=== PATIENT | female | born 1950 | race Hispanic/Latino ===

== ENCOUNTER → 2018-01-11 | Outpatient (CLI) | payer MEDICARE, OTHER | END | disposition home or self-care (01) | LOC: RAH 12:31 | PROVIDERS: ATTEND Family Medicine | DX: Z12.31 Encounter for screening mammogram for malignant neoplasm of breast (principal); R19.05 Periumbilic swelling, mass or lump; I10 Essential (primary) hypertension; R22.42 Localized swelling, mass and lump, left lower limb | CPT/HCPCS: 76882; 77067 ==

== ENCOUNTER → 2019-01-24 | Outpatient (CLI) | payer OTHER | END | disposition home or self-care (01) | LOC: RAH 10:07 | PROVIDERS: ATTEND Family Medicine | DX: Z12.31 Encounter for screening mammogram for malignant neoplasm of breast (principal) | CPT/HCPCS: 77067 ==

== ENCOUNTER → 2019-06-29 | Outpatient (CLI) | payer OTHER ==
[2019-06-29 08:53] LABS: BASOPHILS % (AUTO) 0.8 % (0.0-5.0); EOSINOPHILS % (AUTO) 2.5 % (0.0-8.0); HEMATOCRIT 41.4 % (36-48); LYMPHOCYTES % (AUTO) 29.8 % (21.0-51.0); MEAN CORPUSCULAR HEMOGLOBIN 27.9 pg (27.0-33.0); MEAN CORPUSCULAR HGB CONC 33.8 g/dL (32.0-36.0); MEAN CORPUSCULAR VOLUME 82.7 fL (79-99); MONOCYTES % (AUTO) 6.8 % (3.0-13.0); NEUTROPHILS % (AUTO) 60.1 % (40.0-77.0); PLATELET COUNT (AUTO) 214 K/uL (130-400); RED BLOOD CELL COUNT(AUTO) 5.01 MIL/uL (4.00-5.50); RED CELL DISTRIBUTION WIDTH 14.4 % (11.0-15.5); WHITE BLOOD COUNT (AUTO) 7.4 K/uL (4.8-10.8)
[2019-06-29 09:01] LABS: HEMOGLOBIN A1C 5.7 % (4.0-6.0)
[2019-06-29 09:18] LABS: ALBUMIN 3.6 g/dL (3.5-5.0); BILIRUBIN,TOTAL 0.4 mg/dL (0.2-1.0); CREATININE 0.6 mg/dL (0.5-1.5); POTASSIUM 3.8 mmol/L (3.5-5.1); T4 (THYROXINE) 9.6 ug/dL (4.7-13.3); THYROID STIMULATING HORMONE 2.54 uIU/mL (0.36-3.74); TOTAL PROTEIN, SERUM 7.8 g/dL (6.0-8.3)
== END | disposition home or self-care (01) ==
LOC: LAB 06-28 11:22
PROVIDERS: ATTEND Physician Assistant
DX: E78.5 Hyperlipidemia, unspecified (principal); R06.9 Unspecified abnormalities of breathing; D50.9 Iron deficiency anemia, unspecified; D64.9 Anemia, unspecified; I10 Essential (primary) hypertension; E55.9 Vitamin D deficiency, unspecified; E66.01 Morbid (severe) obesity due to excess calories; M25.50 Pain in unspecified joint; Z79.899 Other long term (current) drug therapy; Z98.84 Bariatric surgery status; Z68.41 Body mass index [BMI] 40.0-44.9, adult
CPT/HCPCS: 36415; 80053; 80061; 82306; 82607; 82746; 83036; 83540; 83735; 84207; 84425; 84436; 84443; 84446; 84481; 84590; 84630; 85025

== ENCOUNTER 2020-11-06 10:00 | Observation (INO) | payer MEDICARE ==
[~2020-11-06] VITALS: Ht 152.4 cm; Wt 76.3 kg
[2020-11-06 09:50] LABS: BASOPHILS % (AUTO) 0.6 % (0.0-5.0); EOSINOPHILS % (AUTO) 2.7 % (0.0-8.0); HEMATOCRIT 42.3 % (36-48); LYMPHOCYTES % (AUTO) 38.5 % (21.0-51.0); MEAN CORPUSCULAR HEMOGLOBIN 28.3 pg (27.0-33.0); MEAN CORPUSCULAR HGB CONC 33.3 g/dL (32.0-36.0); MEAN CORPUSCULAR VOLUME 84.9 fL (79-99); NEUTROPHILS % (AUTO) 51.1 % (40.0-77.0); PLATELET COUNT (AUTO) 205 K/uL (130-400); RED BLOOD CELL COUNT(AUTO) 4.98 MIL/uL (4.00-5.50); RED CELL DISTRIBUTION WIDTH 13.3 % (11.0-15.5); WHITE BLOOD COUNT (AUTO) 6.7 K/uL (4.8-10.8)
[2020-11-06 09:59] LABS: APPEARANCE,URINE Turbid (CLEAR); BILIRUBIN,URINE Negative (NEGATIVE); COLOR,URINE Yellow (YELLOW); GLUCOSE, URINE (UA) Negative (NEGATIVE); KETONES,URINE Negative (NEGATIVE); LEUKOCYTE ESTERASE ,URINE Moderate (NEGATIVE); NITRATE,URINE Negative (NEGATIVE); OCCULT BLOOD,URINE Negative (NEGATIVE); PROTEIN,URINE Negative (NEGATIVE); UROBILINOGEN,URINE 0.2 mg/dL (0.2-1.0)
[2020-11-06 10:05] LABS: BACTERIA,URINE Many /HPF (None Seen); RBC,URINE 0-1 /HPF (0-1); SQUAMOUS EPITHELIAL CELL,UR Rare /HPF (0-2)
[2020-11-06 10:09] LABS: INR 1.02 (0.85-1.15); PROTHROMBIN TIME 11.1 SEC (9.6-11.6)
[2020-11-06 10:10] LABS: CREATININE 0.5 mg/dL (0.5-1.5); POTASSIUM 4.4 mmol/L (3.5-5.1)
[2020-11-06] MEDS ORDERED: ACET-66 PO (13:30)
[2020-11-08] MEDS: GENTAMICIN SULFATE 240 MG in SODIUM CHLORIDE 0.9% 100 ML IV SCH (12:15)
[2020-11-09] MEDS: GENTAMICIN SULFATE 240 MG in SODIUM CHLORIDE 0.9% 100 ML IV SCH (12:15)
[2020-11-10] VITALS (24 sets, daily range): BP systolic 108–136; BP diastolic 52–75
[2020-11-10] MEDS ORDERED: CEFAZOLIN SODIUM 1 GM VIAL IVP SCH (05:00)
[2020-11-10] MEDS ORDERED: GLYCOPYRROLATE 1 MG/5 ML SYRINGE ONE (07:11)
[2020-11-10] MEDS ORDERED: SUCCINYLCHOLINE CHLORIDE 20 MG/ML 10 ML VIAL ONE (07:11)
[2020-11-10] MEDS ORDERED: DEXAMETHASONE SOD PHOSPHATE 10MG/ML 1ML VIAL ONE (07:11)
[2020-11-10] MEDS ORDERED: LIDOCAINE PF 100MG/5ML (2%) SYRINGE 5ML ONE (07:11)
[2020-11-10] MEDS ORDERED: NEOSTIGMINE 5MG/5ML SYR IV ONE (07:12)
[2020-11-10] MEDS ORDERED: MIDAZOLAM HCL 1 MG/ML 2ML VIAL ONE (07:12)
[2020-11-10] MEDS ORDERED: ROCURONIUM 10MG/1ML SYR 10 MG/ML ML ONE ×2 (07:12→10:34)
[2020-11-10] MEDS ORDERED: PROPOFOL 10 MG/ML 20ML VIAL IV ONE (07:12)
[2020-11-10] MEDS ORDERED: ONDANSETRON HCL 4 MG/2 ML VIAL ONE ×2 (07:12→10:34)
[2020-11-10] MEDS ORDERED: FENTANYL CITRATE PF 50 MCG/1 ML 2ML VIAL ONE (07:12)
[2020-11-10] MEDS ORDERED: SODIUM CHLORIDE 0.9% 1000ML 1,000 ML IV ONE (07:35)
[2020-11-10] MEDS ORDERED: ATOR20TA65 PO (07:56)
[2020-11-10] MEDS ORDERED: AMLO-258 PO (07:56)
[2020-11-10] MEDS ORDERED: TRANEXAMIC ACID 1000MG/10ML ONE ×2 (08:08→09:04)
[2020-11-10] MEDS ORDERED: METOCLOPRAMIDE 10 MG/2 ML VIAL ONE (08:08)
[2020-11-10] MEDS ORDERED: CELECOXIB 200 MG CAP ONE (08:08)
[2020-11-10] MEDS ORDERED: ACETAMINOPHEN 500 MG TABLET ONE (08:08)
[2020-11-10] MEDS ORDERED: CEFAZOLIN SODIUM 1 GM VIAL ONE (09:04)
[2020-11-10] MEDS: GENTAMICIN SULFATE 240 MG in SODIUM CHLORIDE 0.9% 100 ML IV SCH (09:05)
[2020-11-10] MEDS ORDERED: EPINEPHRINE 1 MG/ML AMPULE ONE (09:32)
[2020-11-10] MEDS ORDERED: PHENYLEPHRINE HCL 10 MG/ML 1ML VIAL IV ONE (09:32)
[2020-11-10] MEDS ORDERED: EPHEDRINE SULFATE 50 MG/ML AMPULE ONE (09:34)
[2020-11-10] MEDS ORDERED: FAMOTIDINE/PF 20 MG/2 ML VIAL IV ONE (09:42)
[2020-11-10] MEDS ORDERED: CEFAZOLIN SODIUM 1 GM VIAL IRRIG ONE (11:05)
[2020-11-10] MEDS ORDERED: MEPERIDINE-PF 25 MG/ML SYG ONE ×2 (12:42→13:31)
[2020-11-10] MEDS: ACETAMINOPHEN 500 MG TABLET PO SCH ×2 (12:45→20:28)
[2020-11-10] MEDS ORDERED: DiphenhydrAMINE HCL 50 MG/ML VIAL IVP PRN (12:45)
[2020-11-10] MEDS ORDERED: TRAMADOL HCL 50 MG TABLET PO PRN (12:45)
[2020-11-10] MEDS ORDERED: KCL 20 MEQ ERTAB PO PRN (12:45)
[2020-11-10] MEDS ORDERED: SODIUM CHLORIDE 0.9% 1000ML 1,000 ML IV SCH (12:45)
[2020-11-10] MEDS ORDERED: POTASSIUM CHLORIDE 10% ELIXIR 20 MEQ/15 ML UDCUP PO PRN (12:45)
[2020-11-10] MEDS ORDERED: POTASSIUM CHLORIDE 20MEQ/100ML 100 ML IV PRN (12:45)
[2020-11-10] MEDS ORDERED: FERROUS FUMARATE 324 MG TABLET PO PRN (12:45)
[2020-11-10] MEDS ORDERED: TEMAZEPAM 15 MG CAPSULE PO PRN (12:45)
[2020-11-10] MEDS ORDERED: CALCIUM CARBONATE 500 MG TABLET PO PRN (12:45)
[2020-11-10] MEDS ORDERED: KETOROLAC 15MG/ML VIAL (15MG/ML) IV PRN (12:45)
[2020-11-10] MEDS ORDERED: ONDANSETRON HCL 4 MG/2 ML VIAL IVP PRN (12:45)
[2020-11-10] MEDS ORDERED: LIDOCAINE HCL-MPF 1% 2ML VIAL IV PRN (12:45)
[2020-11-10] MEDS ORDERED: OXYCODONE HCL 5 MG TAB PO PRN ×2 (12:45)
[2020-11-10] MEDS: CEFAZOLIN SODIUM 1 GM VIAL IVP SCH (17:38)
[2020-11-10] MEDS: ASPIRIN 81MG TAB.CHEW PO SCH (20:26)
[2020-11-10] MEDS: FAMOTIDINE 20MG TAB 20 MG TAB PO SCH (20:27)
[2020-11-10] MEDS: PREGABALIN 25 MG CAP PO SCH (20:27)
[2020-11-10] MEDS: ATORVASTATIN CALCIUM 20 MG TABLET PO SCH (20:27)
[2020-11-10] MEDS: CELECOXIB 200 MG CAP PO SCH (20:27)
[2020-11-11] MEDS: CEFAZOLIN SODIUM 1 GM VIAL IVP SCH (00:30)
[2020-11-11] MEDS: ACETAMINOPHEN 500 MG TABLET PO SCH ×3 (04:57→19:31)
[2020-11-11 05:03] LABS: HEMATOCRIT 35.5 % (36-48); MEAN CORPUSCULAR HGB CONC 33.2 g/dL (32.0-36.0); MEAN CORPUSCULAR VOLUME 84.1 fL (79-99); RED BLOOD CELL COUNT(AUTO) 4.22 MIL/uL (4.00-5.50); WHITE BLOOD COUNT (AUTO) 12.3 K/uL (4.8-10.8)
[2020-11-11 05:13] VITALS: BP 114/55
[2020-11-11 05:22] LABS: CREATININE 0.8 mg/dL (0.5-1.5); POTASSIUM 4.4 mmol/L (3.5-5.1)
[2020-11-11 08:00] VITALS: BP 125/61
[2020-11-11] MEDS: PREGABALIN 25 MG CAP PO SCH ×2 (08:10→19:32)
[2020-11-11] MEDS: AMLODIPINE BESYLATE 5 MG TAB PO SCH (08:10)
[2020-11-11] MEDS: FAMOTIDINE 20MG TAB 20 MG TAB PO SCH ×2 (08:10→19:32)
[2020-11-11] MEDS: CELECOXIB 200 MG CAP PO SCH ×2 (08:10→19:32)
[2020-11-11] MEDS: ASPIRIN 81MG TAB.CHEW PO SCH ×2 (08:10→19:31)
[2020-11-11] MEDS: POLYETHYLENE GLYCOL 3350 17 GM POWD.PACK PO SCH (08:10)
[2020-11-11 16:00] VITALS: BP 111/47
[2020-11-11] MEDS: ATORVASTATIN CALCIUM 20 MG TABLET PO SCH (19:32)
[2020-11-11 20:37] VITALS: BP 128/54
[2020-11-11 23:38] VITALS: BP 114/60
[2020-11-12 03:25] VITALS: BP 130/61
[2020-11-12] MEDS: ACETAMINOPHEN 500 MG TABLET PO SCH ×3 (04:16→19:48)
[2020-11-12 04:24] LABS: HEMATOCRIT 32.3 % (36-48); MEAN CORPUSCULAR HEMOGLOBIN 28.5 pg (27.0-33.0); MEAN CORPUSCULAR HGB CONC 34.1 g/dL (32.0-36.0); MEAN CORPUSCULAR VOLUME 83.7 fL (79-99); RED BLOOD CELL COUNT(AUTO) 3.86 MIL/uL (4.00-5.50); RED CELL DISTRIBUTION WIDTH 13.5 % (11.0-15.5); WHITE BLOOD COUNT (AUTO) 10.4 K/uL (4.8-10.8)
[2020-11-12 08:32] VITALS: BP 114/70
[2020-11-12] MEDS: AMLODIPINE BESYLATE 5 MG TAB PO SCH (11:12)
[2020-11-12] MEDS: CELECOXIB 200 MG CAP PO SCH ×2 (11:12→19:47)
[2020-11-12] MEDS: ASPIRIN 81MG TAB.CHEW PO SCH ×2 (11:12→19:47)
[2020-11-12] MEDS: POLYETHYLENE GLYCOL 3350 17 GM POWD.PACK PO SCH (11:13)
[2020-11-12] MEDS: PREGABALIN 25 MG CAP PO SCH ×2 (11:13→19:47)
[2020-11-12] MEDS: FAMOTIDINE 20MG TAB 20 MG TAB PO SCH ×2 (11:13→19:47)
[2020-11-12 11:19] VITALS: BP 135/59
[2020-11-12] MEDS ORDERED: HYDR-4060 PO (14:42)
[2020-11-12] MEDS ORDERED: ASPI-1005 PO (14:42)
[2020-11-12 16:39] VITALS: BP 136/56
[2020-11-12] MEDS: ATORVASTATIN CALCIUM 20 MG TABLET PO SCH (19:47)
[2020-11-12 20:01] VITALS: BP 109/65
[2020-11-13] MEDS ORDERED: BISACODYL 10 MG SUPP.RECT RC PRN (12:45)
== END 2020-11-12 20:20 | disposition home or self-care (01) ==
LOC: EDSTATUS 10:00 → OBSVTOIN 11-10 06:45 → INTOOBSV 11-10 06:45 → DAHIP 11-10 06:45 → 4AH 11-10 14:07
PROVIDERS: ADMIT Orthopaedic Surgery; ATTEND Orthopaedic Surgery
DX: M16.12 Unilateral primary osteoarthritis, left hip (principal); Z20.822 Contact with and (suspected) exposure to COVID-19; I10 Essential (primary) hypertension; E78.5 Hyperlipidemia, unspecified; I25.10 Atherosclerotic heart disease of native coronary artery without angina pectoris; M85.80 Other specified disorders of bone density and structure, unspecified site; Z90.710 Acquired absence of both cervix and uterus; Z79.899 Other long term (current) drug therapy
CPT/HCPCS: 27130; 36415 ×3; 73503; 80048 ×2; 81001; 82948; 85025; 85027 ×2; 85610; 87077; 87088; 87186; 87641; 88305; 88311; 93005; 96361; 96365; 96375 ×2; 96376; 97039 ×2; 97116 ×3; 97161; 97530 ×2; A4215; A4216; A4221; A4222; A4223 ×3; A4606; A4649 ×6; A4663; A4930 ×2; A9272; C1776; G0378 ×52; G8978; G8979; G8980; G8981; G8982; G8983; J0171; J0330; J0690 ×5; J1100; J1580 ×2; J1885; J2001; J2175 ×2; J2250; J2370; J2405 ×2; J2704; J2710; J2765; J3010; J3490 ×5; J7030 ×2; U0003

== ENCOUNTER 2022-12-11 14:43 | Emergency (ER) | payer MEDICARE, OTHER ==
[~2022-12-11] VITALS: Ht 152.4 cm; Wt 81.6 kg
[~2022-12-11 14:43] MED LIST: ASPI-1005 PO; MACR100 PO
[2022-12-11] MEDS ORDERED: AMLODIPINE 5 MG TAB ONE (16:08)
[2022-12-11 16:26] VITALS: BP 191/87
[2022-12-11] MEDS ORDERED: AMLODIPINE 5 MG TAB PO ONE (16:30)
== END 2022-12-11 16:45 | disposition home or self-care (01) ==
LOC: EDH 14:43
DX: T81.33XA Disruption of traumatic injury wound repair, initial encounter (principal); I10 Essential (primary) hypertension; Z79.82 Long term (current) use of aspirin; X58.XXXA Exposure to other specified factors, initial encounter

== ENCOUNTER → 2023-07-29 | Outpatient (CLI) | payer OTHER | END | disposition home or self-care (01) | LOC: RAH 10:33 | PROVIDERS: ATTEND Physician Assistant | DX: Z12.31 Encounter for screening mammogram for malignant neoplasm of breast (principal) | CPT/HCPCS: 77067 ==

== ENCOUNTER 2024-10-18 11:38 | Emergency (ER) | payer OTHER ==
[~2024-10-18] VITALS: Ht 152.4 cm; Wt 81.6 kg
--- NOTE | 2024-10-18 12:14 | HMCIMG ---
Exam Type: WRIST COMP 3+VWS RT, HAND 3+VWS RT Clinical Information: Pain Comparison: None Findings and impression: Intra-articular fracture with minimal comminution of the base of the fifth metacarpal with mild dorsal displacement and palmar angulation. No no other fractures or acute abnormalities.
[2024-10-18] MEDS: ketOROlac 15MG/ML VIAL (15MG/ML) IM ONE (13:25)
--- NOTE | 2024-10-18 13:48 | ERN ---
General Chief Complaint: Mechanical Fall Stated Complaint: FALL, RIGHT HEAD SWELLING Time Seen by MD: 11:46 Time Seen by Midlevel: 11:46 Source: patient History of Present Illness Initial Comments 74-year-old female who presents to the emergency department due to right hand pain and swelling. Patient reports she tripped and fell today landing on her right hand. States that she placed her hand between her head and the concrete therefore denies any head injuries, LOC, vomiting or abnormal behavior. Patient denies being on blood thinners. PMHx HTN, DM, hypercholesterolemia Allergies: Coded Allergies: No Known Drug Allergies (Unverified Allergy, Unknown, 09/08/20) Home Meds Active Scripts Aspirin (ASPIRIN 81MG CHEW TAB) 81 Mg Tab.chew, 81 MG PO BID, #60 TAB.CHEW Prov:DONALD KELLOGG MD 11/12/20 Reported Medications Nitrofurantoin/Nitrofuran Mac (Macrobid) 100 Mg Cap, 100 MG PO BID, CAP 10/01/21 Past Medical History Past Medical History: Diabetes-Type II, High Cholesterol, Hypertension Past Surgical History: Hysterectomy, Other Surgical History Other: BACK, HIP ROS Dictation Constitutional: Negative for fever,chills, and weight loss Eyes: Negative for injury, pain,redness, and discharge ENT: Negative for injury,pain or swelling Cardiovascular: Negative for chest pain, palpitations, and edema Respiratory: Negative for shortness of breath, cough, and wheezing, Abdomen/GI: Negative for abdominal pain, nausea, vomiting, diarrhea, and constipation Back: Negative for injury and pain : Negative for painful urination, bleeding or discharge MS/Extremity: Positive for right hand pain Negative for injury and deformity Skin: Negative for rash, and discoloration Neuro: Negative for headache, weakness, numbness, tingling, and seizure Psych: Negative for suicide ideation, homicidal ideation, and hallucinations Physical Exam Physical Exam Dictation General: awake, alert, no acute distress Head/Face: Normocephalic, atraumatic, right cheek abrasion Eyes: PERRL, EOMI, normal conjunctiva ENT: oral cavity clear, oral mucosa moist Neck: Supple, normal range of motion Cardiovascular: RRR, normal S1/S2 Respiratory: CTAB, no respiratory distress Skin: Warm, dry, normal turgor, no rash MS/Extremity: Pulses equal, no cyanosis, neurovascular intact. Right hand tenderness to palpation of the 5th metacarpal, swelling, mild ecchymosis, restricted range of motion due to pain. Neuro: COAx4, GCS 15, strength 5/5, CN 2-12 intact, normal cerebellar exam, normal gait, Psych: Normal behavior, mood, and affect normal Results EKG/XRAY/US/CT/MRI X-RAY Comment REASON: Pain ORDERING PHYSICIAN: YESSENIA LUONG PROCEDURE: WRST 3V RT - WRIST COMP 3+VWS RT Exam Type: WRIST COMP 3+VWS RT, HAND 3+VWS RT Clinical Information: Pain Comparison: None Findings and impression: Intra-articular fracture with minimal comminution of the base of the fifth metacarpal with mild dorsal displacement and palmar angulation. No no other fractures or acute abnormalities. DICTATED BY: TAM DAWN MD DATE: 10/18/241210 REASON: Pain ORDERING PHYSICIAN: YESSENIA LUONG PROCEDURE: HAND 3V RT - HAND 3+VWS RT Exam Type: WRIST COMP 3+VWS RT, HAND 3+VWS RT Clinical Information: Pain Comparison: None Findings and impression: Intra-articular fracture with minimal comminution of the base of the fifth metacarpal with mild dorsal displacement and palmar angulation. No no other fractures or acute abnormalities. DICTATED BY: TAM DAWN MD DATE: 10/18/241210 MDM MDM: Differential diagnosis: Rationale:74-year-old female who presents to the emergency department due to right hand pain and swelling. Patient reports she tripped and fell today landing on her right hand. States that she placed her hand between her head and the concrete therefore denies any head injuries, LOC, vomiting or abnormal behavior. Patient denies being on blood thinners. PMHx HTN, DM, hypercholesterolemia Per physical examination right hand tenderness to palpation of the 5th meta carpal, swelling, mild ecchymosis, restricted range of motion due to pain, neurovascularly intact. X-rays obtained indicating a right 5th metacarpal fracture at the base. The patient placed on a ulnar gutter splint. Referred for outpatient follow up with ortho. Advised to follow up with PCP. Return to the emergency department if any worsening symptoms. Patient verbalized understanding. Patient stable for discharge. There are no social concerns with this patient. I independently interpreted the test that were performed, results were reviewed by me and considered findings on radiology if ordered. Medical management and examination interpretation discussions were had by me with other qualified healthcare professionals as indicated for the patient's care. ED Course Orders Procedure Category Date Status Time Hand 3+Vws Rt RAD 10/18/24 Resulted 11:45 Wrist Comp 3+Vws Rt RAD 10/18/24 Resulted 11:45 *Nursing CPOE 10/18/24 Transmitted Communication: 12:52 Ketorolac PHA 10/18/24 Complete Tromethamine 15mg/Ml 13:30 Current Medications Medications (Trade) Dose Ordered Sig/Gilda Route PRN Reason Start Time Stop Time Status Last Admin Dose Admin Ketorolac Tromethamine (toRADol) 15 mg ONCE ONCE IM 10/18/24 13:30 10/18/24 13:31 DC 10/18/24 13:25 Vital Signs Date Time Temp Pulse Resp B/P (MAP) Pulse Ox O2 Delivery O2 Flow Rate FiO2 10/18/24 13:51 98.2 65 16 175/90 98 Room Air* 0 21 10/18/24 12:07 98.2 61 16 180/95 98 Room Air* 0 21 10/18/24 11:39 98.1 61 20 183/101 97 Room Air 0 DX & DISP Disposition: Discharge Departure Impression: Primary Impression: Closed fracture of metacarpal bone Condition: Stable Additional Instructions: Discharge home. Rest. Follow up with primary care Dr. in 24 hours. Return to the ER for any acute changes or worsening symptoms. If any medications were prescribed take as directed. Okay to continue home medications unless otherwise discussed during your visit in the emergency room today. Patient was also advised to follow-up with primary care physician in 1 to 2 days for continued monitoring. All instructions were given to laymans term and patient agreeable to discharge and proper follow-up. Referrals: DALE MORAN (PCP) KRISSY PEREZ MD, JOSE A MD I performed the substantive portion of the visit. I have reviewed and personally made and approve the management plan that is documented in the notes by myself or the CAN. I acknowledge full responsibility for the patient's management plan. YESSENIA LUONG Oct 18, 2024 13:48 SARAH SORENSON DO Oct 19, 2024 07:35
[2024-10-18 13:51] VITALS: BP 175/90; PULSE 65; RESP 16; TEMP 98.3; O2SAT 98
--- NOTE | 2024-10-18 13:52 | NUR ---
SPLINT PLACED MD REQUESTED
== END 2024-10-18 13:57 | disposition home or self-care (01) ==
LOC: EDH 11:38
DX: S62.316A Displaced fracture of base of fifth metacarpal bone, right hand, initial encounter for closed fracture (principal); E11.9 Type 2 diabetes mellitus without complications; E78.00 Pure hypercholesterolemia, unspecified; I10 Essential (primary) hypertension; Z79.82 Long term (current) use of aspirin; Z90.710 Acquired absence of both cervix and uterus; W01.0XXA Fall on same level from slipping, tripping and stumbling without subsequent striking against object, initial encounter; Y93.89 Activity, other specified; Y92.89 Other specified places as the place of occurrence of the external cause; Y99.8 Other external cause status
CPT/HCPCS: 99284; 73130; 73110; 29125; 96372; J1885

== ENCOUNTER → 2025-07-30 | Outpatient (CLI) | payer OTHER | END | disposition home or self-care (01) | LOC: RAH 11:23 | PROVIDERS: ATTEND Family Medicine | DX: Z12.31 Encounter for screening mammogram for malignant neoplasm of breast (principal) | CPT/HCPCS: 77067 ==